=== PATIENT | female | born 1990 | race Caucasian/White ===

== ENCOUNTER 2017-07-14 17:21 | Emergency (ER) | payer BC ==
[~2017-07-14] VITALS: Ht 160 cm; Wt 61.2 kg
[2017-07-14] MEDS ORDERED: GABA800T2 PO (17:34)
[2017-07-14] MEDS ORDERED: HYDR-3028 PO ×2 (17:34)
--- NOTE | 2017-07-14 18:14 | NUR ---
pending U/S scanning at this time, NAD, a [facility] staff is with the patient
--- NOTE | 2017-07-14 18:22 | NUR ---
[employer] is now here, for results and disposition
--- NOTE | 2017-07-14 18:41 | NUR ---
Patient discharged to home in stable conditon. Written and verbal after care instructions given to patient and to the [facility] staff. Patient and [facility] staff verbalized understanding of instructions. Patient left ER with steady gait & w/her own prefab boot.
== END 2017-07-14 18:44 | disposition home or self-care (01) ==
LOC: ER 17:21
DX: R20.2 Paresthesia of skin (principal); F17.210 Nicotine dependence, cigarettes, uncomplicated; F11.10 Opioid abuse, uncomplicated; F15.10 Other stimulant abuse, uncomplicated; Z79.899 Other long term (current) drug therapy
CPT/HCPCS: A4663